=== PATIENT | female | born 1990 | race Caucasian/White ===

== ENCOUNTER 2022-09-12 01:16 | Emergency (ER) | payer SELFPAY ==
[~2022-09-12] VITALS: Ht 160 cm; Wt 72.7 kg
[~2022-09-12 01:16] MED LIST: ACYCLOVIR800 MG PO; AMOXICILLIN 50500 MG PO; BIRTH CONTROL; CEFTIN 250250 MG/TAB PO; CEFTIN250 M1 PO; CIPRO 500MG TA500 MG PO; DOXYCYCLINE 10100 MG PO; FLAGYL500 MG PO; FLOMAX 0.40.4 MG/CAP PO; IBU-6600 MG PO; LORTAB 2.5/5001 TAB PO; LORTAB 5/500 501 TAB PO; LOW-OGESTREL 281 TAB PO; MEDROL 4MG DOSPA4 MG PO; NO HOME MEDICATIONS; NORCO 325 MG-51 TAB PO; PERCOCET 325 MG1 TA2 PO; PREDNISONE20 MG PO; PRENATAL1 TA1 PO; PROVENTIL0.09 MG/A1 IH; ROBITUSSIN PED PO; TESSALON PERLE200 MG PO; TYLENOL EXTRA500 M1 PO; TYLENOL PM EXTR1 TA1 PO; ZITHROMAX Z PA250 MG PO
[2022-09-12 01:32] VITALS: BP 109/77; PULSE 83; TEMP 98.5
[2022-09-12] MEDS ORDERED: AMOXICILLIN 8751 TAB PO (01:46)
[2022-09-12] MEDS ORDERED: NORCO 325 MG-51 TAB PO (01:46)
== END 2022-09-12 01:54 | disposition home or self-care (01) ==
LOC: COL.ER 01:16
DX: T85.848A Pain due to other internal prosthetic devices, implants and grafts, initial encounter (principal); K02.9 Dental caries, unspecified; Z28.310 Unvaccinated for COVID-19; Z88.5 Allergy status to narcotic agent